=== PATIENT | female | born 1995 | race Caucasian/White ===

== ENCOUNTER → 2019-04-26 | Emergency (ER) | payer OTHER ==
[~2019-04-26] VITALS: Ht 165.1 cm; Wt 79.8 kg
[~2019-04-26] MED LIST: ELIM TOP
[2019-04-26 13:19] VITALS: BP 114/73; PULSE 77; RESP 16; Ht 165.1 cm; Wt 79.8 kg
--- NOTE | 2019-04-26 15:18 | ERD ---
ER Documentation Chief Complaint Chief Complaint PT reports rash x 1 month HPI 23-year-old female presenting with a rash x1 month. Patient states is very pruritic rash primarily located to her arms and hands. Her sons and also have similar rash. She is tried Benadryl and hydrocortisone with no alleviation of symptoms. Denies other medical problems. NKDA. Surgical history denies. Social history denies ROS All systems reviewed and are negative except as per history of present illness. Medications Home Meds Active Scripts Permethrin* (Elimite*) 5% Cr, 1 APPLIC TOP ONCE, #1 TUB Prov:AMELIA MATA PA-C 04/26/19 Allergies Allergies: Coded Allergies: No Known Allergy (Unverified , 04/26/19) PMhx/Soc Medical and Surgical Hx: pt denies Medical Hx, pt denies Surgical Hx Hx Alcohol Use: No Hx Substance Use: No Hx Tobacco Use: No Smoking Status: Never smoker FmHx Family History: No diabetes, No coronary disease, No other Physical Exam Vitals Vital Signs Date Temp Pulse Resp B/P (MAP) Pulse Ox O2 O2 Flow FiO2 Time Delivery Rate 04/26/19 98.8 77 16 114/73 100 13:19 (87) Physical Exam GENERAL: The patient is well-appearing, well-nourished, in no acute distress HEENT: Atraumatic. Conjunctivae are pink. Pupils equal, round, and reactive to light. There is no scleral icterus. Tympanic membranes clear bilaterally. Oropharynx clear. CHEST: Clear to auscultation bilaterally. There are no rales, wheezes or rhonchi. HEART: Regular rate and rhythm. No murmurs, clicks, rubs or gallops. EXTREMITIES: Equal pulses bilaterally. There is no peripheral clubbing, cyanosis or edema. No focal swelling or erythema. Full range of motion. SKIN: Excoriated rash noted to hands. No vesicles or pustules. Procedures/MDM MDM: 23-year-old female presenting with rash. Patient will be treated for possible scabies rash. I have low suspicion for life any rash I have low chen spicion for parasitic or viral infection. Patient is discharged with supportive medications and told to follow-up with primary care within 1 to 2 days for close evaluation. Patient is told symptoms change or worsen to return immediately to the ER. All questions answered at discharge Departure Diagnosis: Primary Impression: Scabies Condition: Stable Patient Instructions: Self-Care for Skin Rashes Referrals: [facility] YOU HAVE RECEIVED A MEDICAL SCREENING EXAM AND THE RESULTS INDICATE THAT YOU DO NOT HAVE A CONDITION THAT REQUIRES URGENT TREATMENT IN THE EMERGENCY DEPARTMENT. FURTHER EVALUATION AND TREATMENT OF YOUR CONDITION CAN WAIT UNTIL YOU ARE SEEN IN YOUR DOCTORS OFFICE WITHIN THE NEXT 1-2 DAYS. IT IS YOUR RESPONSIBILITY TO MAKE AN APPOINTMENT FOR FOLOW-UP CARE. IF YOU HAVE A PRIMARY DOCTOR --you should call your primary doctor and schedule an appointment IF YOU DO NOT HAVE A PRIMARY DOCTOR YOU CAN CALL OUR PHYSICIAN REFERRAL HOTLINE AT IF YOU CAN NOT AFFORD TO SEE A PHYSICIAN YOU CAN CHOSE FROM THE FOLLOWING [facility] [id number] [facility] [place] [address] [facility] [facility] [address] [facility] [address] [facility] [facility] [address] [facility] [facility] [address] Additional Instructions: FOLLOW UP WITH YOUR PRIMARY CARE PHYSICIAN TOMORROW.Return to this facility if you are not improving as expected. AMELIA MATA PA-C Apr 26, 2019 15:18
== END | disposition home or self-care (01) ==
LOC: FTE 13:08
DX: B86 Scabies (principal)
CPT/HCPCS: 99282